=== PATIENT | male | born 1985 ===

== ENCOUNTER 2016-10-20 13:09 | Observation (INO) | payer MEDICAID ==
[2016-10-20 13:22] VITALS: TEMP 98.8
[2016-10-20 13:34] VITALS: BMI 25.8
[2016-10-20] MEDS ORDERED: Sodium Chloride 0.9% 1,000 ML IV ONE ×3 (13:37→15:14)
--- NOTE | 2016-10-20 13:48 | RAD ---
HISTORY: HYPOTENSION, AMS COMPARISON: None available. TECHNIQUE: Chest, one view. FINDINGS: LUNGS: No focal consolidation. Please note that chest x-ray has limited sensitivity for the detection of pulmonary masses. PLEURA: No significant pleural effusion identified. No definite pneumothorax . CARDIOVASCULAR: The cardiomediastinal silhouette appears within normal limits of size. OSSEOUS STRUCTURES: No acute osseous abnormality identified. VISUALIZED UPPER ABDOMEN: Unremarkable. OTHER FINDINGS: None. IMPRESSION: No focal consolidation, significant pleural effusion, or definite pneumothorax identified.
[2016-10-20 13:49] LABS: BASO # 0.1 K/uL (0.0-0.2); BASO % 1.2 % (0.0-2.0); EOS % 0.8 % (0.0-4.0); HEMATOCRIT 36.4 % (35.0-51.0); LYMPH # 1.7 K/uL (1.0-4.3); LYMPH % 36.8 % (20.0-40.0); MEAN CELL VOLUME 96.5 fL (80.0-94.0); MEAN CORPUSCULAR HEMOGLOBIN 32.7 pg (27.0-31.0); MEAN CORPUSCULAR HGB CONC 33.9 g/dL (33.0-37.0); MEAN PLATELET VOLUME 6.8 fL (7.2-11.7); MONO # 0.8 K/uL (0.0-0.8); MONO % 17.2 % (0.0-10.0); NRBC % 0.1 % (0.0-2.0); RED CELL DISTRIBUTION WIDTH 14.7 % (11.5-14.5); WHITE BLOOD COUNT 4.5 K/uL (4.8-10.8)
[2016-10-20 13:59] LABS: CHLORIDE 105 mmol/L (98-107); POTASSIUM 3.1 mmol/L (3.6-5.2); SODIUM 146 mmol/L (132-148)
[2016-10-20 14:01] LABS: AST/SGOT 620 U/L (17-59); BILIRUBIN,TOTAL 0.8 mg/dL (0.2-1.3); CARBON DIOXIDE 27 mmol/L (22-30); GFR AFRICAN-AMERICAN > 60
[2016-10-20 14:02] LABS: ALB/GLOB RATIO 1.2 (1.0-2.1); ALKALINE PHOSPHATASE 86 U/L (38-126); ALT/SGPT 412 U/L (21-72); BLOOD UREA NITROGEN 6 mg/dL (9-20); GLUCOSE,RANDOM 88 mg/dL (75-110); TOTAL PROTEIN 7.3 g/dL (6.3-8.3)
[2016-10-20] MEDS ORDERED: Ketamine 50 mg/ml Inj (10 ml) IV STA (14:03)
[2016-10-20 14:08] VITALS: PULSE 78
[2016-10-20] MEDS ORDERED: Ketamine 50 mg/ml Inj (10 ml) ONE (14:16)
[2016-10-20 14:17] LABS: ALCOHOL SERUM 475 mg/dl (0-10)
[2016-10-20 14:18] LABS: CALCIUM 8.5 mg/dl (8.6-10.4)
[2016-10-20 14:47] VITALS: RESP 17; O2SAT 99
--- NOTE | 2016-10-20 15:15 | CT ---
PROCEDURE: CT HEAD WITHOUT CONTRAST. HISTORY: altered mental status COMPARISON: None available. TECHNIQUE: Axial computed tomography images were obtained through the head/brain without intravenous contrast. Radiation dose: Total exam DLP = 941.00 mGy-cm. This CT exam was performed using one or more of the following dose reduction techniques: Automated exposure control, adjustment of the mA and/or kV according to patient size, and/or use of iterative reconstruction technique. FINDINGS: HEMORRHAGE: No intracranial hemorrhage. BRAIN: No mass effect or edema. No atrophy or chronic microvascular ischemic changes.Please note that MRI with diffusion imaging is more sensitive in the detection of acute ischemic event. VENTRICLES: No hydrocephalus. CALVARIUM: Unremarkable. PARANASAL SINUSES: Unremarkable as visualized. No significant inflammatory changes. MASTOID AIR CELLS: Unremarkable as visualized. No inflammatory changes. OTHER FINDINGS: None. IMPRESSION: No acute intracranial pathology identified.
[2016-10-20 15:27] VITALS: BP 105/73
[2016-10-20 15:30] LABS: URINE BILIRUBIN NEGATIVE (NEGATIVE); URINE BLOOD NEGATIVE (NEGATIVE); URINE COLOR Yellow (YELLOW); URINE GLUCOSE (UA) NORMAL (Normal); URINE KETONE NEGATIVE (NEGATIVE); URINE LEUKOCYTE ESTERASE NEG Leu/uL (Negative); URINE PROTEIN NEGATIVE (NEGATIVE); URINE UROBILINOGEN NORMAL mg/dL (0.2-1.0); WBC URINE < 1 /hpf (0-5)
--- NOTE | 2016-10-20 15:31 | C.PDOC ---
History Of Present Illness 31-year-old male, brought to the emergency department by ambulance for evaluation of hypotension. Patient was found in hotel, appeared to be under influence of drugs/alcohol. In ED, hx is limited due to intoxication. Time Seen by Provider: 10/20/16 13:17 Chief Complaint (Nursing): Substance Abuse History Per: EMS History/Exam Limitations: intoxication Current Symptoms Are (Timing): Still Present Modifying Factor(s): Alcohol, Other (drugs) Involuntary Hold By: Emergency Physician Past Medical History Reviewed: Historical Data, Nursing Documentation, Vital Signs Vital Signs: Last Vital Signs Temp 98.8 F 10/20/16 13:15 Pulse 78 10/20/16 14:46 Resp 17 10/20/16 14:46 BP 105/73 10/20/16 15:22 Pulse Ox 99 10/20/16 17:39 Family History: States: Unknown Family Hx - Social History Hx Alcohol Use: Yes Hx Substance Use: Yes Review Of Systems Review Of Systems: ROS cannot be obtained secondary to pt's inabilty to answer questions. Physical Exam - Physical Exam Appears: Non-toxic, No Acute Distress, Other (drowsy, but awake. EtOH on breath. ) Skin: Warm, Dry Head: Atraumatic, Normacephalic Eye(s): bilateral: EOMI, Other (dilated B/L 6-7mm, reactive) Oral Mucosa: Moist Neck: Normal, Normal ROM (nontender), No Midline Cervical Tenderness, No Paracervical Tenderness, No Step Off Deformity, Supple Cardiovascular: Rhythm Regular Respiratory: Normal Breath Sounds, No Rales, No Rhonchi, No Wheezing Gastrointestinal/Abdominal: Normal Exam, Bowel Sounds, Soft, No Tenderness Extremity: Normal ROM Extremity: Bilateral: Atraumatic, Normal Color And Temperature, Normal ROM Neurological/Psych: Other (awake, drowsy, moving all 4 extremities spontaneously ) ED Course And Treatment - Laboratory Results Result Diagrams: 10/20/16 13:39 10/20/16 13:39 ECG: Interpreted By Me, Viewed By Me (NSR 66bpm, normal axis, no acute ST/T wave changes) ECG Interpretation: Normal O2 Sat by Pulse Oximetry: 99 (RA) Pulse Ox Interpretation: Normal - Radiology CXR: Viewed By Me, Read By Radiologist CXR Interpretation: Yes: No Acute Disease - CT Scan/US CT HEAD Other Rad Studies (CT/US): Read By Radiologist, Radiology Report Reviewed CT/US Interpretation: Accession No. : [id number]. Patient Name / ID : YOUNG FRANCOIS / [id number]. Exam Date : 10/20/2016 14:35:31 ( Approved ). Study Comment : Sex / Age : M / 31Y. Creator : Maria G Estrada MD. Dictator : Maria G Estrada MD. [employer] Supervisor : Director Of Event Management : Maria G Estrada MD. Approver2 : Report Date : 10/20/2016 15:10:21. My Comment : . PROCEDURE: CT HEAD WITHOUT CONTRAST. HISTORY: altered mental status. COMPARISON: None available. TECHNIQUE: Axial computed tomography images were obtained through the head/brain without intravenous contrast. Radiation dose: Total exam DLP = 941.00 mGy-cm. This CT exam was performed using one or more of the following dose reduction techniques: Automated exposure control, adjustment of the mA and/or kV according to patient size, and/or use of iterative reconstruction technique. FINDINGS: HEMORRHAGE: No intracranial hemorrhage. BRAIN: No mass effect or edema. No atrophy or chronic microvascular ischemic changes.Please note that MRI with diffusion imaging is more sensitive in the detection of acute ischemic event. VENTRICLES: No hydrocephalus. CALVARIUM: Unremarkable. PARANASAL SINUSES: Unremarkable as visualized. No significant inflammatory changes. MASTOID AIR CELLS: Unremarkable as visualized. No inflammatory changes. OTHER FINDINGS: None. IMPRESSION: No acute intracranial pathology identified. Progress Note: Blood work, CT head, EKG, CXR and UA/UDS ordered. Patient given IV NS bolus x 3. 14:00- Patient refused CT scan of head, was agitated in CT scan. Ketamine IV ordered PRN, patient to be taken up again with nurse for CT scan. 3:30pm- Patient's vitals significantly improved. CT head (-), blood work shows elevated liver enymes (likely due to alcohol abuse), ETOH level > 400. Patient's friend is in the ED and would like to take him home, will take responsiblity for getting him home safely. Patient able to ambulate slowly in ED. Will discharge. Critical Care Time - Critical Care Note Total Time (in mins): 40 Documented critical care: time excludes all time spent performing seperately billable procedures. Disposition Counseled Patient/Family Regarding: Studies Performed, Diagnosis, Need For Followup - Disposition Disposition Time: 15:35 Condition: STABLE - Clinical Impression Clinical Impression: Alcohol intoxication, Substance abuse, Hypotension, Elevated liver enzymes - Scribe Statement The provider has reviewed the documentation as recorded by the Scribbrijesh Becerril All medical record entries made by the Anandaibe were at my direction and personally dictated by me. I have reviewed the chart and agree that the record accurately reflects my personal performance of the history, physical exam, medical decision making, and the department course for this patient. I have also personally directed, reviewed, and agree with the discharge instructions and disposition.
--- NOTE | 2016-10-28 12:28 | CARD ---
APPROVED REPORT EKG Measurement Heart [id number] <Conclusion> Normal sinus rhythm Normal ECG
== END 2016-10-20 15:34 | disposition home or self-care (01) ==
LOC: C.ER 13:09 → C.9OBSV 15:14 → C.ER 15:38
PROVIDERS: ADMIT Emergency Medicine; ATTEND Emergency Medicine
DX: F10.120 Alcohol abuse with intoxication, uncomplicated (principal); Y90.8 Blood alcohol level of 240 mg/100 ml or more; I95.9 Hypotension, unspecified
CPT/HCPCS: 70450; 71010; 80053; 80320; 80324; 80345; 80346; 80349; 80353; 80358; 80361; 81001; 82948; 83992; 85025; 93005; 96360; 96361; 99284; G0378; J7040